=== PATIENT | male | born 1980 | race Caucasian/White ===

== ENCOUNTER 2017-07-27 10:45 | Outpatient (CLI) | payer MEDICAID ==
[~2017-07-27 10:45] MED LIST: NO HOME MEDS
[2017-07-27 10:52] VITALS: BP 136/90
== END 2017-07-27 11:30 | disposition home or self-care (01) ==
LOC: ORTHO 10:45
PROVIDERS: ATTEND Nurse Practitioner Family
DX: M65.4 Radial styloid tenosynovitis [de Quervain] (principal); F12.90 Cannabis use, unspecified, uncomplicated; I10 Essential (primary) hypertension; I48.91 Unspecified atrial fibrillation; I49.8 Other specified cardiac arrhythmias; F17.210 Nicotine dependence, cigarettes, uncomplicated; Z56.0 Unemployment, unspecified
CPT/HCPCS: 99211

== ENCOUNTER 2017-08-24 09:11 | Outpatient (CLI) | payer MEDICAID ==
[2017-08-24 09:11] VITALS: BP 151/102
== END 2017-08-24 09:45 | disposition home or self-care (01) ==
LOC: ORTHO 09:11
PROVIDERS: ATTEND Nurse Practitioner Family
DX: M65.4 Radial styloid tenosynovitis [de Quervain] (principal); X50.9XXA Other and unspecified overexertion or strenuous movements or postures, initial encounter; Y93.89 Activity, other specified; Y92.013 Bedroom of single-family (private) house as the place of occurrence of the external cause
CPT/HCPCS: 99213

== ENCOUNTER 2017-11-19 23:03 | Emergency (ER) | payer MEDICAID ==
[~2017-11-19] VITALS: Ht 185.4 cm; Wt 77.3 kg
[2017-11-20] MEDS ORDERED: TETanus/Pertussis (Acell)/Diphther VAC/PF (Tdap-Adult) 0.5ml syringe IM ONE (00:55)
[2017-11-20 02:45] VITALS: BP 146/92
== END 2017-11-20 02:47 | disposition home or self-care (01) ==
LOC: ER 23:03
DX: S02.32XA Fracture of orbital floor, left side, initial encounter for closed fracture (principal); S01.111A Laceration without foreign body of right eyelid and periocular area, initial encounter; I48.91 Unspecified atrial fibrillation; I10 Essential (primary) hypertension; F15.10 Other stimulant abuse, uncomplicated; Z56.0 Unemployment, unspecified; Y08.89XA Assault by other specified means, initial encounter; Y93.89 Activity, other specified; Y92.89 Other specified places as the place of occurrence of the external cause; Y99.8 Other external cause status
CPT/HCPCS: 70450; 70486; 90715; 99284

== ENCOUNTER 2018-05-15 19:58 | Emergency (ER) | payer MEDICAID, OTHER ==
[~2018-05-15] VITALS: Ht 185.4 cm; Wt 72.2 kg
[2018-05-15 20:13] VITALS: BP 141/90
[2018-05-15 20:45] LABS: BASOPHILS # (AUTO) 0.1 X10'3 (0-0.2); BASOPHILS % (AUTO) 2.4 % (0-1); EOSINOPHILS # (AUTO) 0.2 X10'3 (0-0.9); EOSINOPHILS % (AUTO) 2.7 % (0-6); HEMATOCRIT 40.8 % (42.0-52.0); HEMOGLOBIN 14.1 g/dl (14.0-17.9); LYMPHOCYTES # (AUTO) 2.4 X10'3 (1.1-4.8); LYMPHOCYTES % (AUTO) 40.3 % (21-51); MEAN CORPUSCULAR HEMOGLOBIN 30.7 PG (27.0-31.0); MEAN CORPUSCULAR HGB CONC 34.4 % (33.0-36.5); MEAN CORPUSCULAR VOLUME 89.3 FL (78-98); MEAN PLATELET VOLUME 7.5 FL (7.4-10.4); MONOCYTES # (AUTO) 0.5 X10'3 (0-0.9); MONOCYTES % (AUTO) 8.1 % (2-12); NEUTROPHILS # (AUTO) 2.8 X10'3 (1.8-7.7); NEUTROPHILS % (AUTO) 46.5 % (42-75); PLATELET COUNT 261 X10'3 (140-440); RED BLOOD COUNT 4.57 X10'6 (4.70-6.10)
[2018-05-15 20:55] LABS: ALANINE AMINOTRANSFERASE 20 U/L (12-78); ALBUMIN 3.9 G/DL (3.4-5.0); ALBUMIN/GLOBULIN RATIO 1.1 (1.1-1.5); ALKALINE PHOSPHATASE 99 IU/L (46-116); ANION GAP 7 (8-16); ASPARTATE AMINO TRANSFERASE 16 U/L (10-37); BILIRUBIN,TOTAL 0.6 MG/DL (0.1-1.0); BLOOD UREA NITROGEN 13 MG/DL (7-18); BUN/CREATININE RATIO 13.3 (5.4-32.0); CALCIUM 8.8 MG/DL (8.5-10.1); CHLORIDE 104 MMOL/L (99-107); CREATININE 0.98 MG/DL (0.60-1.10); GLUCOSE 64 MG/DL (70-104); POTASSIUM 3.4 MMOL/L (3.5-5.1); SODIUM 142 MMOL/L (135-145); TOTAL CARBON DIOXIDE 31.1 MMOL/L (24-32); TOTAL PROTEIN 7.5 G/DL (6.4-8.2); eGFR 85 ML/MIN
[2018-05-15] MEDS ORDERED: aspirin 81mg tab.chew PO ONE (21:05)
[2018-05-15] MEDS ORDERED: ketorolac trometh. 30mg/ml inj. IV ONE (21:05)
[2018-05-15 21:38] LABS: D-DIMER < 0.19 MG/L FEU (0-0.50)
== END 2018-05-15 22:46 | disposition home or self-care (01) ==
LOC: ER 19:59
DX: R07.89 Other chest pain (principal); M79.602 Pain in left arm; I48.91 Unspecified atrial fibrillation; I10 Essential (primary) hypertension; F15.90 Other stimulant use, unspecified, uncomplicated; Z56.0 Unemployment, unspecified; Z98.890 Other specified postprocedural states
CPT/HCPCS: 36415; 71046; 80053; 84484; 85025; 85379; 93005; 93971; 96374; 99285; J1885

== ENCOUNTER 2018-06-24 02:05 | Emergency (ER) | payer MEDICAID, OTHER ==
[~2018-06-24] VITALS: Ht 185.4 cm; Wt 68.2 kg
[2018-06-24 02:15] VITALS: BP 141/82
[2018-06-24] MEDS ORDERED: IBUP-1986 PO (02:37)
[2018-06-24] MEDS ORDERED: ketorolac trometh inj. 60 MG/2 ML VIAL IM ONE (02:40)
== END 2018-06-24 02:53 | disposition home or self-care (01) ==
LOC: ER 02:05
DX: M54.9 Dorsalgia, unspecified (principal); I48.91 Unspecified atrial fibrillation; I10 Essential (primary) hypertension; Z98.890 Other specified postprocedural states; Z79.899 Other long term (current) drug therapy
CPT/HCPCS: 96372; 99283; J1885

== ENCOUNTER 2022-01-16 20:07 | Emergency (ER) | payer MEDICAID ==
[~2022-01-16] VITALS: Ht 185.4 cm; Wt 81.8 kg
[~2022-01-16 20:07] MED LIST changes: +IBUP-1986 PO
[2022-01-16 20:23] VITALS: BP 155/92
== END 2022-01-16 21:18 | disposition home or self-care (01) ==
LOC: ER 20:09
DX: Z00.00 Encounter for general adult medical examination without abnormal findings (principal); I10 Essential (primary) hypertension; F15.90 Other stimulant use, unspecified, uncomplicated; Z98.890 Other specified postprocedural states; Z72.89 Other problems related to lifestyle; Z79.899 Other long term (current) drug therapy
CPT/HCPCS: 73090; 99283